=== PATIENT | male | born 1990 | race American Indian/Alaskan Native ===

== ENCOUNTER 2016-12-28 22:17 | Inpatient (IN) | payer OTHER ==
[2016-12-28 23:49] LABS: Anion Gap 30 mmol/L; Basophils % (Auto) 0.2 % (0.0-1.8); Blood Urea Nitrogen 17 mg/dL (9-20); Calcium 9.8 mg/dL (8.4-10.2); Carbon Dioxide 13 mmol/L (22-30); Chloride 92.6 mmol/L (98-107); Eosinophils % (Auto) 0.2 % (0.0-4.3); Hematocrit 47.8 % (35.5-45.6); Mean Corpuscular HGB Conc 33 % (32-34); Mean Corpuscular Hemoglobin 30 pg (28-32); Mean Corpuscular Volume 91 fl (84-94); Platelet Count 297 K/mm3 (140-440); Potassium 4.6 mmol/L (3.6-5.0); Red Blood Count 5.29 M/mm3 (3.65-5.03); Sodium 131 mmol/L (137-145)
[2016-12-28 23:55] LABS: Glucose 544 mg/dL (75-100)
[2016-12-29] MEDS ORDERED: D50W (25GM) IV PRN ×2 (02:33→04:07)
[2016-12-29] MEDS ORDERED: NACL 0.9% 1000 ML 1,000 ML IV ONE ×2 (02:33→02:34)
--- NOTE | 2016-12-29 02:43 | Emergency Department Report ---
- General Chief complaint: Hyperglycemia Stated complaint: POSS HIGH BS/SOB Time Seen by Provider: 12/29/16 02:33 Source: patient Mode of arrival: Ambulatory Limitations: No Limitations - History of Present Illness Initial comments: 26 year old male with a past medical history of [id number] diabetes presents to the hospital with hyperglycemia, fatigue, increased thirst, increased urination, shortness of breath. Patient states he has been compliant with his metformin 500 mg twice a day. He does not check his sugar at home at all. Patient has been a diabetic for 2 years as never established treatment with a primary care doctor and meds are refilled and adjusted through ER visits. Patient denies any pain or fever but has generalized weakness. - Related Data Allergies Allergy/AdvReac Type Severity Reaction Status Date / Time No Known Allergies Allergy Verified 12/29/16 02:36 ED Review of Systems ROS: Stated complaint: POSS HIGH BS/SOB Other details as noted in HPI Comment: All other systems reviewed and negative Other: Constitutional: No fevers chills Eyes: No eye pain visual changes ENT: No ear pain or throat pain Neck: Denies pain Respiratory: Denies cough wheezing Endocrine: As per HPI GI: Denies abdominal pain, nausea, vomiting, diarrhea : Denies dysuria Musculoskeletal: Denies back pain Skin: Denies rash, lesions, erythema Neurologic: Denies headache, numbness Psychiatric: Denies suicidal ideation, hallucinations ED Past Medical Hx - Past Medical History Hx Diabetes: Yes - Social History Smoking Status: Never Smoker Substance Use Type: None ED Physical Exam - General Limitations: No Limitations - Other Other exam information: General: No limitations, patient is alert in no acute distress Head exam: Atraumatic, normocephalic Eyes exam: Normal appearance, pupils equal reactive to light ENT:dry mucous membrane, normal oropharynx Neck exam: Normal inspection Respiratory exam: Clear to auscultation bilateral, no wheezes, rales, crackles Cardiovascular: Normal rate and rhythm, normal heart sounds Abdomen: Soft, nondistended, and nontender, with normal bowel sounds, no rebound, or guarding Extremity: Full range of motion normal inspection no deformity Back: Normal Inspection, full range of motion, no tenderness Neurologic: Alert, oriented x3, cranial nerves intact, no motor or sensory deficit Psychiatric: normal affect, normal mood Skin: Warm, dry, intact ED Course Vital Signs 12/28/16 22:54 Temperature 98.4 F Pulse Rate 77 Respiratory 18 Rate Blood Pressure 131/85 O2 Sat by Pulse 98 Oximetry - Reevaluation(s) Reevaluation #1: 12/29/16 02:46 Patient stable without distress. IV fluids, insulin bolus, insulin drip ordered 12/29/16 03:15 bolus held since glucose in 300's. Pt states he has been drinking lots of water. ED Medical Decision Making - Lab Data Result diagrams: 12/28/16 23:15 12/28/16 23:15 Lab Results 12/28/16 12/28/16 12/28/16 Range/Units 22:56 23:15 23:15 WBC 10.0 (4.5-11.0) K/mm3 RBC 5.29 H (3.65-5.03) M/mm3 Hgb 16.0 H (11.8-15.2) gm/dl Hct 47.8 H (35.5-45.6) % MCV 91 (84-94) fl MCH 30 (28-32) pg MCHC 33 (32-34) % RDW 13.0 L (13.2-15.2) % Plt Count 297 (140-440) K/mm3 Lymph % (Auto) 9.1 L (13.4-35.0) % [place] % (Auto) 6.9 (0.0-7.3) % Eos % (Auto) 0.2 (0.0-4.3) % Baso % (Auto) 0.2 (0.0-1.8) % Lymph # 0.9 L (1.2-5.4) K/mm3 [place] # 0.7 (0.0-0.8) K/mm3 Eos # 0.0 (0.0-0.4) K/mm3 Baso # 0.0 (0.0-0.1) K/mm3 Seg Neutrophils % 83.6 H (40.0-70.0) % Seg Neutrophils # 8.4 H (1.8-7.7) K/mm3 VBG pH (7.320-7.420) Sodium 131 L (137-145) mmol/L Potassium 4.6 (3.6-5.0) mmol/L Chloride 92.6 L (98-107) mmol/L Carbon Dioxide 13 L (22-30) mmol/L Anion Gap 30 mmol/L BUN 17 (9-20) mg/dL Creatinine 1.0 (0.8-1.5) mg/dL Estimated GFR > 60 ml/min BUN/Creatinine Ratio 17.00 % Glucose 544 H* (75-100) mg/dL POC Glucose > 500 H (70-105) Calcium 9.8 (8.4-10.2) mg/dL 12/28/16 Range/Units 23:15 WBC (4.5-11.0) K/mm3 RBC (3.65-5.03) M/mm3 Hgb (11.8-15.2) gm/dl Hct (35.5-45.6) % MCV (84-94) fl MCH (28-32) pg MCHC (32-34) % RDW (13.2-15.2) % Plt Count (140-440) K/mm3 Lymph % (Auto) (13.4-35.0) % [place] % (Auto) (0.0-7.3) % Eos % (Auto) (0.0-4.3) % Baso % (Auto) (0.0-1.8) % Lymph # (1.2-5.4) K/mm3 [place] # (0.0-0.8) K/mm3 Eos # (0.0-0.4) K/mm3 Baso # (0.0-0.1) K/mm3 Seg Neutrophils % (40.0-70.0) % Seg Neutrophils # (1.8-7.7) K/mm3 VBG pH 7.217 L (7.320-7.420) Sodium (137-145) mmol/L Potassium (3.6-5.0) mmol/L Chloride (98-107) mmol/L Carbon Dioxide (22-30) mmol/L Anion Gap mmol/L BUN (9-20) mg/dL Creatinine (0.8-1.5) mg/dL Estimated GFR ml/min BUN/Creatinine Ratio % Glucose (75-100) mg/dL POC Glucose (70-105) Calcium (8.4-10.2) mg/dL UA 80 ketones - Medical Decision Making Labs consistent with DKA. Patient has been compliant with his metformin and will likely need insulin or additional meds for blood glucose control. ICU admission for insulin drip therapy is required at this time - Differential Diagnosis hyperglycemia, DKA Critical Care Time: No Critical care attestation.: If time is entered above; I have spent that time in minutes in the direct care of this critically ill patient, excluding procedure time. ED Disposition Clinical Impression: Diabetic ketoacidosis Disposition: OP ADMIT IP TO THIS HOSP Is pt being admited?: Yes Does the pt Need Aspirin: Yes Condition: Stable Time of Disposition: 02:47 (Dr. Merchant/[facility])
[2016-12-29 02:55] LABS: Bilirubin,Urine NEG (Negative); Blood,Urine NEG (Negative); Ketones,Urine 80 mg/dL (Negative); Leukocyte Esterase,Urine NEG (Negative); Mucus,Urine FEW /HPF; Nitrite,Urine NEG (Negative); Protein,Urine <15 mg/dL mg/dL (Negative); Urobilinogen,Urine < 2.0 mg/dL (<2.0); WBC,Urine < 1.0 /HPF (0.0-6.0)
[2016-12-29] MEDS: NovoLIN R 100 UNITS in NACL 0.9% 99 ML IV SCH ×2 (03:00→16:41)
[2016-12-29] MEDS ORDERED: ZOFRAN IV PRN (04:05)
[2016-12-29] MEDS ORDERED: REGLAN IV PRN (04:05)
[2016-12-29] MEDS ORDERED: MILK OF MAGNESIA PO PRN (04:05)
[2016-12-29] MEDS ORDERED: TYLENOL PO PRN (04:05)
[2016-12-29] MEDS ORDERED: DULCOLAX PR PRN (04:05)
--- NOTE | 2016-12-29 04:09 | History and Physical Report ---
History of Present Illness Date of examination: 12/29/16 History of present illness: 26-year-old man with a history of diabetes comes emergency room because he felt that his sugar was elevated. He has been experiencing frequent urination and thirst and generalized weakness. Does not check his sugar at home Patient denies chest pain, palpitation, shortness of breath, cough, abdominal pain, hematochezia, dysuria, frequency, focal weakness, dysarthria, fever chills , hot or cold intolerance, easy bruisability, or rash or bleeding from mucosal membrane, rhinorrhea, epistaxis, earache, tinnitus, blurry vision, eye discharge , anxiety, depression. Other review of systems negative PAST SURGICAL HISTORY: None SOCIAL HISTORY: Denies alcohol, tobacco, drugs FAMILY HISTORY: Diabetes Medications and Allergies Allergies Allergy/AdvReac Type Severity Reaction Status Date / Time No Known Allergies Allergy Verified 12/29/16 02:36 Home Medications Medication Instructions Recorded Confirmed Last Taken Type metFORMIN [Glucophage] 500 mg PO BID 12/29/16 12/29/16 12/28/16 History Active Meds: Active Medications Dextrose (D50w (25gm)) 0 ml IV PRN PRN PRN Reason: Hypoglycemia Insulin Human Regular 100 (units/ Sodium Chloride) 100 mls @ 1 mls/hr IV TITR MARIZOL; 1 UNITS/HR PRN Reason: Protocol Last Admin: 12/29/16 03:00 Dose: 7 units/hr, 7 mls/hr Exam - Physical Exam Narrative exam: Gen. appearance: Patient lying in bed, no apparent distress HEENT: Normocephalic, atraumatic, pupils equally round and reactive to light, extraocular movement intact, and no sclericterus,. No JVD or thyromegaly or nodule,neck supple, no carotid bruit ,mucous membranes moist, no exudate or erythema Heart: S1, S2, regular rate and rhythm Lungs: Clear to auscultation bilaterally, breathing comfortable Abdomen: Positive bowel sounds, nontender, nondistended, no organomegaly Extremity: No edema, cyanosis, clubbing Skin: No rash, nodules, warm, dry Neuro: Oriented 3, cranial nerves II-12 intact, speech is fluent, motor and sensory intact - Constitutional Vitals: Temp Pulse Resp BP Pulse Ox 98.4 F 77 18 131/85 98 12/28/16 22:54 12/28/16 22:54 12/28/16 22:54 12/28/16 22:54 12/28/16 22:54 Results - Labs CBC & Chem 7: 12/30/16 04:34 12/30/16 04:34 Labs: Abnormal lab results 12/28/16 12/28/16 12/28/16 Range/Units 22:56 23:15 23:15 RBC 5.29 H (3.65-5.03) M/mm3 Hgb 16.0 H (11.8-15.2) gm/dl Hct 47.8 H (35.5-45.6) % RDW 13.0 L (13.2-15.2) % Lymph % (Auto) 9.1 L (13.4-35.0) % Lymph # 0.9 L (1.2-5.4) K/mm3 Seg Neutrophils % 83.6 H (40.0-70.0) % Seg Neutrophils # 8.4 H (1.8-7.7) K/mm3 VBG pH (7.320-7.420) Sodium 131 L (137-145) mmol/L Chloride 92.6 L (98-107) mmol/L Carbon Dioxide 13 L (22-30) mmol/L Glucose 544 H* (75-100) mg/dL POC Glucose > 500 H (70-105) 12/28/16 12/29/16 12/29/16 Range/Units 23:15 02:58 04:00 RBC (3.65-5.03) M/mm3 Hgb (11.8-15.2) gm/dl Hct (35.5-45.6) % RDW (13.2-15.2) % Lymph % (Auto) (13.4-35.0) % Lymph # (1.2-5.4) K/mm3 Seg Neutrophils % (40.0-70.0) % Seg Neutrophils # (1.8-7.7) K/mm3 VBG pH 7.217 L (7.320-7.420) Sodium (137-145) mmol/L Chloride (98-107) mmol/L Carbon Dioxide (22-30) mmol/L Glucose (75-100) mg/dL POC Glucose 394 H 393 H (70-105) Assessment and Plan DKA Pseudohyponatremia Metabolic acidosis Dehydration Admits medicine Start IV fluids, insulin drip Monitor serial chemistry, fingersticks Check hemoglobin A1c, consult critical care Start DVT prophylaxis
[2016-12-29] MEDS ORDERED: NACL 0.9% 1000 ML 1,000 ML IV SCH (05:00)
[2016-12-29] MEDS ORDERED: NACL 0.9% 1000 ML 1,000 ML ONE (05:13)
[2016-12-29 05:21] LABS: Magnesium 2.3 mg/dL (1.7-2.3); Phosphorous 4.3 mg/dL (2.5-4.5)
[2016-12-29 05:33] LABS: Blood Urea Nitrogen 19 mg/dL (9-20); Chloride 101.1 mmol/L (98-107); Glucose 447 mg/dL (75-100); Potassium 4.7 mmol/L (3.6-5.0); Sodium 135 mmol/L (137-145)
[2016-12-29 05:35] LABS: Anion Gap 31 mmol/L
[2016-12-29 05:36] LABS: Carbon Dioxide 8 mmol/L (22-30)
[2016-12-29 07:21] LABS: Anion Gap 28 mmol/L; BUN/Creatinine Ratio 21.25; Blood Urea Nitrogen 17 mg/dL (9-20); Calcium 9.4 mg/dL (8.4-10.2); Carbon Dioxide 10 mmol/L (22-30); Chloride 108.2 mmol/L (98-107); Glucose 301 mg/dL (75-100); Potassium 4.2 mmol/L (3.6-5.0); Sodium 142 mmol/L (137-145)
[2016-12-29] MEDS: D5/0.45NS 1,000 ML IV SCH ×3 (07:36→21:00)
--- NOTE | 2016-12-29 08:02 | Progress Note ---
Assessment and Plan Assessment and plan: --Diabetic ketoacidosis Secondary to noncompliance, continue insulin drip per protocol Rigorous IV hydration, closely monitor electrolytes, follow a gap,Sips of water as tolerated May start long-acting insulin and ADA diet once anion gap closes and sugars are reasonable control Hemoglobin A1c 11.2 ,Diabetic education, nutrition consult --Pseudohyponatremia Secondary to severe hyperglycemia ,Resolved closely monitor electrolytes --Medical non-complaints; counseling done patient strongly advised to adhere Treatment and diet plan Also encouraged to follow primary care physician for close monitoring of blood sugars Diabetic education, nutrition consult Possible home health nurse and discharge for disease monitoring --DVT prophylaxis with Lovenox --Obesity; counseling done patient advised dietary modification and exercise as tolerated and weight reduction When medically stable, patient verbalized understanding Closely monitor the patient adjust the management as needed Medical records reviewed plan of care discussed with the patient as well as his nurse Critical care time 32 minutes, The high probability of a clinically significant, sudden or life threatening deterioration of the [endocrine, electrolyte] system(s) required my full and direct attention, intervention and personal management. The aggregate critical care time was [32] minutes. This time is in addition to time spent performing reported procedures but includes the following: [x] Data Review and interpretation [x] Patient assessment and monitoring of vital signs [x] Documentation [x] Medication orders and management in ICU History Interval history: Patient seen and evaluated in ICU this morning medical records reviewed Patient was admitted with diabetic ketoacidosis on insulin drip Patient feels slightly better no new complaints No new events reported by the nursing staff Alert awake oriented 3 not in acute distress Hospitalist Physical - Constitutional Vitals: Temp Pulse Resp BP Pulse Ox 98.5 F 78 18 131/78 100 12/29/16 06:00 12/29/16 05:00 12/29/16 05:00 12/29/16 05:00 12/29/16 05:00 General appearance: Present: no acute distress, well-nourished, obese - EENT Eyes: Present: PERRL, EOM intact - Neck Neck: Present: supple, normal ROM - Respiratory Respiratory effort: normal Respiratory: negative: rales, rhonchi, wheezing - Cardiovascular Rhythm: regular Heart Sounds: Present: S1 & S2 - Extremities Extremities: no ischemia, pulses intact, pulses symmetrical Peripheral Pulses: within normal limits - Abdominal General gastrointestinal: soft, non-tender, non-distended, normal bowel sounds - Integumentary Integumentary: Present: clear, warm - Psychiatric Psychiatric: appropriate mood/affect, cooperative - Neurologic Neurologic: CNII-XII intact, moves all extremities Results - Labs CBC & Chem 7: 12/28/16 23:15 12/29/16 12:33 Labs: Laboratory Last Values WBC 10.0 K/mm3 (4.5-11.0) 12/28/16 23:15 RBC 5.29 M/mm3 (3.65-5.03) H 12/28/16 23:15 Hgb 16.0 gm/dl (11.8-15.2) H 12/28/16 23:15 Hct 47.8 % (35.5-45.6) H 12/28/16 23:15 MCV 91 fl (84-94) 12/28/16 23:15 MCH 30 pg (28-32) 12/28/16 23:15 MCHC 33 % (32-34) 12/28/16 23:15 RDW 13.0 % (13.2-15.2) L 12/28/16 23:15 Plt Count 297 K/mm3 (140-440) 12/28/16 23:15 Lymph % (Auto) 9.1 % (13.4-35.0) L 12/28/16 23:15 [place] % (Auto) 6.9 % (0.0-7.3) 12/28/16 23:15 Eos % (Auto) 0.2 % (0.0-4.3) 12/28/16 23:15 Baso % (Auto) 0.2 % (0.0-1.8) 12/28/16 23:15 Lymph # 0.9 K/mm3 (1.2-5.4) L 12/28/16 23:15 [place] # 0.7 K/mm3 (0.0-0.8) 12/28/16 23:15 Eos # 0.0 K/mm3 (0.0-0.4) 12/28/16 23:15 Baso # 0.0 K/mm3 (0.0-0.1) 12/28/16 23:15 Seg Neutrophils % 83.6 % (40.0-70.0) H 12/28/16 23:15 Seg Neutrophils # 8.4 K/mm3 (1.8-7.7) H 12/28/16 23:15 VBG pH 7.217 (7.320-7.420) L 12/28/16 23:15 Sodium 142 mmol/L (137-145) D 12/29/16 06:50 Potassium 4.7 mmol/L (3.6-5.0) 12/29/16 04:22 Chloride 101.1 mmol/L (98-107) 12/29/16 04:22 Carbon Dioxide 10 mmol/L (22-30) L 12/29/16 06:50 Anion Gap 31 mmol/L 12/29/16 04:22 BUN 17 mg/dL (9-20) 12/29/16 06:50 Creatinine 0.8 mg/dL (0.8-1.5) 12/29/16 06:50 Estimated GFR > 60 ml/min 12/29/16 06:50 BUN/Creatinine Ratio 21.25 % 12/29/16 06:50 Glucose 301 mg/dL (75-100) H 12/29/16 06:50 POC Glucose 291 (70-105) H 12/29/16 06:07 Hemoglobin A1c 11.3 % (4-6) H 12/29/16 04:22 Calcium 9.4 mg/dL (8.4-10.2) 12/29/16 06:50 Phosphorus 4.30 mg/dL (2.5-4.5) 12/29/16 04:22 Magnesium 2.30 mg/dL (1.7-2.3) 12/29/16 04:22 Urine Color Straw (Yellow) 12/28/16 Unknown Urine Turbidity Clear (Clear) 12/28/16 Unknown Urine pH 5.0 (5.0-7.0) 12/28/16 Unknown Ur Specific [place] 1.021 (1.003-1.030) 12/28/16 Unknown Urine Protein <15 mg/dl mg/dL (Negative) 12/28/16 Unknown Urine Glucose (UA) >=500 mg/dL (Negative) 12/28/16 Unknown Urine Ketones 80 mg/dL (Negative) 12/28/16 Unknown Urine Blood Neg (Negative) 12/28/16 Unknown Urine Nitrite Neg (Negative) 12/28/16 Unknown Urine Bilirubin Neg (Negative) 12/28/16 Unknown Urine Urobilinogen < 2.0 mg/dL (<2.0) 12/28/16 Unknown Ur Leukocyte Esterase Neg (Negative) 12/28/16 Unknown Urine WBC (Auto) < 1.0 /HPF (0.0-6.0) 12/28/16 Unknown Urine RBC (Auto) 1.0 /HPF (0.0-6.0) 12/28/16 Unknown U Epithel Cells (Auto) < 1.0 /HPF (0-13.0) 12/28/16 Unknown Urine Mucus Few /HPF 12/28/16 Unknown
[2016-12-29 09:59] LABS: Anion Gap 24 mmol/L; Blood Urea Nitrogen 16 mg/dL (9-20); Calcium 9.3 mg/dL (8.4-10.2); Carbon Dioxide 13 mmol/L (22-30); Chloride 109.3 mmol/L (98-107); Glucose 251 mg/dL (75-100); Potassium 4.3 mmol/L (3.6-5.0); Sodium 142 mmol/L (137-145)
[2016-12-29] MEDS ORDERED: LOVENOX SUB-Q SCH (10:00)
--- NOTE | 2016-12-29 11:25 | Consultation ---
History of Present Illness Consult date: 12/29/16 Reason for consult: other (DKA) History of present illness: Called to evaluate case of a 26-year-old male, with prior history of diabetes mellitus and immediate daily ICU with DKA. The patient reports long-standing history of diabetes currently treated with metformin. Previously on insulin but this was reportedly stopped 2 years ago. He presented with the finances, for thirsty and following on recheck with elevation of his blood sugar. Follow with severe acidosis of the ER and DKA protocol was initiated. He denies recent history of infection, influenza-like illness, urinary tract discomfort GI problems. He denies nausea, vomiting. No fever or chills reported by patient. No cough or active expectoration. Currently at the ICU on DKA protocol, blood sugar improving, last AG 20 Past History Past Medical History: diabetes Past Surgical History: No surgical history Social history: no significant social history Medications and Allergies Allergies Allergy/AdvReac Type Severity Reaction Status Date / Time No Known Allergies Allergy Verified 12/29/16 02:36 Home Medications Medication Instructions Recorded Confirmed Last Taken Type metFORMIN [Glucophage] 500 mg PO BID 12/29/16 12/29/16 12/28/16 History Active Meds: Active Medications Acetaminophen (Tylenol) 650 mg PO Q4H PRN PRN Reason: Pain MILD(1-3)/Fever >100.5/TORO Bisacodyl (Dulcolax) 10 mg CA QDAY PRN PRN Reason: Constipation unrelieved by MOM Dextrose (D50w (25gm)) 0 ml IV ONCE PRN PRN Reason: Hypoglycemia Enoxaparin Sodium (Lovenox) 40 mg SUB-Q QDAY@1000 MARIZOL Insulin Human Regular 100 (units/ Sodium Chloride) 100 mls @ 1 mls/hr IV TITR MARIZOL; 1 UNITS/HR PRN Reason: Protocol Last Titration: 12/29/16 10:13 Dose: 10 units/hr, 10 mls/hr Dextrose/Sodium Chloride (D5/0.45ns) 1,000 mls @ 150 mls/hr IV DIRECT MARIZOL Last Admin: 12/29/16 07:36 Dose: 150 mls/hr Sodium Chloride (Nacl 0.9% 1000 Ml) 1,000 mls @ 150 mls/hr IV DIRECT MARIZOL Last Infusion: 12/29/16 07:38 Dose: 0 mls/hr Magnesium Hydroxide (Milk Of Magnesia) 30 ml PO Q4H PRN PRN Reason: Constipation Metoclopramide HCl (Reglan) 10 mg IV Q6H PRN PRN Reason: Nausea And Vomiting Ondansetron HCl (Zofran) 4 mg IV Q8H PRN PRN Reason: N/V unrelieved by Reglan Review of Systems Constitutional: weight gain, fatigue, no fever, no chills, no sweats, no night sweats, no anorexia, no weakness, no lethargy Cardiovascular: no chest pain, no orthopnea, no palpitations, no edema, no syncope Respiratory: no cough, no cough with sputum, no excessive sputum, no hemoptysis , no shortness of breath, no dyspnea on exertion Gastrointestinal: no abdominal pain, no nausea, no vomiting, no diarrhea Genitourinary Male: no dysuria, no hematuria Integumentary: no rash, no pruritis, no redness, no sores, no wounds Neurological: weakness, no convulsions Psychiatric: no anxiety Endocrine: excessive thirst, polyuria, nocturia, high blood sugars, fatigue Hematologic/Lymphatic: no easy bruising, no easy bleeding, no lymphadenopathy, no lymphedema Allergic/Immunologic: no urticaria, no allergic rhinitis, no wheezing Physical Examination Vital signs: Vital Signs Temp Pulse Resp BP Pulse Ox 98.4 F 77 18 131/85 98 12/28/16 22:54 12/28/16 22:54 12/28/16 22:54 12/28/16 22:54 12/28/16 22:54 General appearance: no acute distress, alert, other (obese) Eyes: non-icteric ENT: oropharynx dry Neck: supple, no lymphadenopathy, no JVD Effort: normal Ascultation: Bilateral: clear Cardiovascular: regular rate and rhythm Gastrointestinal: normoactive bowel sounds, non-distended Integumentary: normal Extremities: no cyanosis normal mental status, non-focal exam mood appropriate, affect normal Results - Laboratory Findings CBC and BMP: 12/28/16 23:15 12/29/16 09:22 Abnormal lab findings: Abnormal Labs 12/29/16 12/29/16 12/29/16 04:22 04:22 05:07 Sodium 135 L Chloride Carbon Dioxide 8 L* Glucose 447 H POC Glucose 312 H Hemoglobin A1c 11.3 H 12/29/16 12/29/16 12/29/16 06:07 06:50 09:22 Sodium Chloride 109.3 H Carbon Dioxide 10 L 13 L Glucose 301 H 251 H POC Glucose 291 H Hemoglobin A1c - Diagnostic Findings Chest x-ray: report reviewed Assessment and Plan DKA Metabolic acidosis Obesity DM. Thus far been treated with metformin. This reassessment as to best approach for outpatient management Recommendations Continue IV fluids and Monitor sliding scale glucose and continue insulin per protocol Encourage by mouth free water and will initiate oral feedings when appropriate DVT prophylaxis Monitor for fever Critical care time was 31 minutes of [id number] evaluation and coordination of care
[2016-12-29] MEDS: LOVENOX SUB-Q SCH (11:33)
[2016-12-29 13:06] LABS: Anion Gap 24 mmol/L; BUN/Creatinine Ratio 16.66; Blood Urea Nitrogen 15 mg/dL (9-20); Calcium 8.8 mg/dL (8.4-10.2); Carbon Dioxide 13 mmol/L (22-30); Chloride 109.1 mmol/L (98-107); Glucose 201 mg/dL (75-100); Sodium 142 mmol/L (137-145)
--- NOTE | 2016-12-29 13:55 | Admit Criteria Form ---
Admission Criteria Documentation: DIABETES Clinical Indications for Admission to Inpatient Care (Place 'X' for any and all applicable criteria): Admission is indicated by presence of ALL (if I & II) or ANY ONE (if III or IV) of the following (1)(2)(3)(4): [X]I. Diabetes is uncontrolled as indicated by ANY ONE of the following: [X]a) Diabetic ketoacidosis as indicated by ALL of the following (8): [X]i) Hyperglycemia (eg, plasma glucose greater than 200 mg/ dL (11.1 mmol/L)) [X]ii) Acidosis (eg, arterial pH less than 7.30, serum bicarbonate level less than 15 mEq/L (mmol/L)) [ ]iii) Moderate ketonuria or ketonemia [ ]b) Hyperglycemic hyperosmolar state as indicated by ALL of the following(9)(10): [ ]i) Neurologic dysfunction (eg, stupor, coma, hemiparesis , seizure)(13) [ ]ii) Plasma glucose greater than 600 mg/dL (33.3 mmol/L) [ ]iii) Serum osmolality greater than 320 mOsm/kg (mmol/kg) [ ]c) Severe signs or symptoms secondary to hyperglycemia indicated by ANY ONE of the following: [ ]i) Altered mental status(10) [ ]ii) Significant hypovolemia or dehydration [ ]iii) Intractable nausea or vomiting [ ]iv) Unexplained fever or severe infection [ ]v) Severe electrolyte abnormality (eg, hypokalemia, hyperkalemia, hypernatremia) [ ]II. Management at other levels of care (Also use Diabetes: Observation Care as appropriate) is not feasible because of ANY ONE of the following: [ ]a) Condition was not adequately corrected with treatment at other levels of care. [ ]b) Treatment at other levels of care is not appropriate because of condition severity (eg, hyperosmolar coma). [ ]III. Contraindications and/or Inappropriate clinical situations for Observational Care in patients with Diabetes, when ANY ONE of the following is required: [ ]a) Patient require specific diagnostic workup or therapeutic intervention 22 [ ]b) Patient with abnormal vital signs or altered mental status 23 [ ]IV. General contraindications and/or Inappropriate clinical situations for Observational Care in patients with Diabetes, when ANY ONE of the following is required: [ ]a) Prediction of prolongation of LOS based on ANY ONE of the following may be considered as a contraindication for observational care 2, 3, 4, 5, 6, 7, 8, 9, 10, 11 [ ]i) Age > 65 yrs. [ ]ii) Patient arriving by ambulance [ ]iii) Patient with high acuity [ ]iv) Patient requiring vital sign monitoring [ ]v) Patient on IV medication [ ]b) Systolic blood pressures 180mmHg 3,12 [ ]c) Patient with altered mental status including delirium and other alteration of consciousness, (3) [ ]d) Patient whose discharge disposition will be to a nursing home home or rehabilitation home should not be managed in Emergency Department Observation Unit. CMS rule requires 3 days hospital stay before such placement.3,13 [ ]e) Patient with failure to thrive due to broad array of etiologies 3,16,17 [ ]f) Inability to ambulate 3,14 Extended stay beyond goal length of stay may be needed for(3)(20): [ ]a) Treatment of precipitating causes [ ]b) Development of hypoglycemia [ ]c) Complications of treatment [ ]d) Complications of decompensated diabetes (eg, acute gastric dilatation, persistent metabolic or neurologic derangement) [ ]e) Active Comorbidities [ ]f) Older patients( 65 years or older) The original [employer] content created by [employer] has been revised. The portions of the content which have been revised are identified through the use of italic text or in bold,and [facility] has neither reviewed nor approved the modified material. All other unmodified content is copyright [employer] [facility]. Please see references footnoted in the original [employer] [facility] edition 2016 Admission Criteria Met: Yes
[2016-12-29 21:04] LABS: Anion Gap 18 mmol/L; Blood Urea Nitrogen 12 mg/dL (9-20); Calcium 8.2 mg/dL (8.4-10.2); Carbon Dioxide 16 mmol/L (22-30); Chloride 107.5 mmol/L (98-107); Glucose 258 mg/dL (75-100); Potassium 3.1 mmol/L (3.6-5.0); Sodium 138 mmol/L (137-145)
[2016-12-30] MEDS ORDERED: K-DUR PO ONE (00:01)
[2016-12-30] MEDS: NovoLIN R 100 UNITS in NACL 0.9% 99 ML IV SCH (01:06)
[2016-12-30] MEDS: D5/0.45NS 1,000 ML IV SCH (05:08)
[2016-12-30 05:10] LABS: Basophils % (Auto) 0.4 % (0.0-1.8); Eosinophils % (Auto) 1.7 % (0.0-4.3); Hematocrit 39.5 % (35.5-45.6); Hemoglobin 13.4 gm/dl (11.8-15.2); Mean Corpuscular HGB Conc 34 % (32-34); Mean Corpuscular Hemoglobin 30 pg (28-32); Mean Corpuscular Volume 89 fl (84-94); Platelet Count 212 K/mm3 (140-440); Red Blood Count 4.44 M/mm3 (3.65-5.03); Red Cell Distribution Width 13.2 % (13.2-15.2); White Blood Count 6.4 K/mm3 (4.5-11.0)
[2016-12-30 05:21] LABS: Magnesium 1.7 mg/dL (1.7-2.3); Phosphorous 3.7 mg/dL (2.5-4.5)
[2016-12-30 05:26] LABS: Anion Gap 20 mmol/L; Blood Urea Nitrogen 11 mg/dL (9-20); Calcium 8.3 mg/dL (8.4-10.2); Carbon Dioxide 17 mmol/L (22-30); Chloride 104.9 mmol/L (98-107); Glucose 244 mg/dL (75-100); Sodium 138 mmol/L (137-145)
--- NOTE | 2016-12-30 07:06 | Progress Note ---
Assessment and Plan Assessment and plan: --Diabetic ketoacidosis Discontinue insulin drip, start long-acting insulin 7030 Change IV fluids to normal saline, ADA diet Accu-Cheks every before meals and at bedtime, sliding scale coverage moderate dose Diabetic education and nutrition consult, hemoglobin A1c 11.2 --Pseudohyponatremia Secondary to severe hyperglycemia ,Resolved --Medical non-compliance; counseling done patient strongly advised to adhere Treatment and diet plan Also encouraged to follow primary care physician for close monitoring of blood sugars Diabetic education, nutrition consult Possible home health nurse and discharge for disease monitoring --Obesity; counseling done patient advised dietary modification and exercise as tolerated and weight reduction When medically stable, patient verbalized understanding --DVT prophylaxis with Lovenox Monitor blood sugars for 1-2 hours and patient can be transferred out of ICU to medical floor Possible discharge in 1-2 days if stable Plan of care discussed with the patient and answered all his questions Critical care time 31 minutes, The high probability of a clinically significant, sudden or life threatening deterioration of the [endocrine, electrolyte] system(s) required my full and direct attention, intervention and personal management. The aggregate critical care time was [31] minutes. This time is in addition to time spent performing reported procedures but includes the following: [x] Data Review and interpretation [x] Patient assessment and monitoring of vital signs [x] Documentation [x] Medication orders and management in ICU History Interval history: Patient seen and evaluated in ICU this morning medical records reviewed Blood sugars are reasonable levels, anion gap closed patient feels better no new complaints Hospitalist Physical - Constitutional Vitals: Temp Pulse Resp BP Pulse Ox 98.6 F 68 17 120/72 97 12/30/16 04:32 12/30/16 05:00 12/30/16 05:00 12/30/16 05:00 12/30/16 05:00 General appearance: Present: no acute distress, well-nourished, obese - EENT Eyes: Present: PERRL, EOM intact - Neck Neck: Present: supple, normal ROM - Respiratory Respiratory effort: normal Respiratory: negative: rales, rhonchi, wheezing - Cardiovascular Rhythm: regular Heart Sounds: Present: S1 & S2 - Extremities Extremities: no ischemia, pulses intact, pulses symmetrical - Abdominal General gastrointestinal: soft, non-tender, non-distended, normal bowel sounds - Integumentary Integumentary: Present: clear, warm - Psychiatric Psychiatric: appropriate mood/affect, cooperative - Neurologic Neurologic: CNII-XII intact, moves all extremities Results - Labs CBC & Chem 7: 12/30/16 04:34 12/30/16 04:34 Labs: Laboratory Last Values WBC 6.4 K/mm3 (4.5-11.0) 12/30/16 04:34 RBC 4.44 M/mm3 (3.65-5.03) 12/30/16 04:34 Hgb 13.4 gm/dl (11.8-15.2) 12/30/16 04:34 Hct 39.5 % (35.5-45.6) D 12/30/16 04:34 MCV 89 fl (84-94) 12/30/16 04:34 MCH 30 pg (28-32) 12/30/16 04:34 MCHC 34 % (32-34) 12/30/16 04:34 RDW 13.2 % (13.2-15.2) 12/30/16 04:34 Plt Count 212 K/mm3 (140-440) 12/30/16 04:34 Lymph % (Auto) 26.2 % (13.4-35.0) 12/30/16 04:34 Giles % (Auto) 8.7 % (0.0-7.3) H 12/30/16 04:34 Eos % (Auto) 1.7 % (0.0-4.3) 12/30/16 04:34 Baso % (Auto) 0.4 % (0.0-1.8) 12/30/16 04:34 Lymph # 1.7 K/mm3 (1.2-5.4) 12/30/16 04:34 Giles # 0.6 K/mm3 (0.0-0.8) 12/30/16 04:34 Eos # 0.1 K/mm3 (0.0-0.4) 12/30/16 04:34 Baso # 0.0 K/mm3 (0.0-0.1) 12/30/16 04:34 Seg Neutrophils % 63.0 % (40.0-70.0) 12/30/16 04:34 Seg Neutrophils # 4.0 K/mm3 (1.8-7.7) 12/30/16 04:34 VBG pH 7.217 (7.320-7.420) L 12/28/16 23:15 Sodium 138 mmol/L (137-145) 12/30/16 04:34 Potassium 4.0 mmol/L (3.6-5.0) D 12/30/16 04:34 Chloride 104.9 mmol/L (98-107) 12/30/16 04:34 Carbon Dioxide 17 mmol/L (22-30) L 12/30/16 04:34 Anion Gap 20 mmol/L 12/30/16 04:34 BUN 11 mg/dL (9-20) 12/30/16 04:34 Creatinine 1.0 mg/dL (0.8-1.5) 12/30/16 04:34 Estimated GFR > 60 ml/min 12/30/16 04:34 BUN/Creatinine Ratio 11.00 % 12/30/16 04:34 Glucose 244 mg/dL (75-100) H 12/30/16 04:34 POC Glucose 236 (70-105) H 12/30/16 06:23 Hemoglobin A1c 11.3 % (4-6) H 12/29/16 04:22 Calcium 8.3 mg/dL (8.4-10.2) L 12/30/16 04:34 Phosphorus 3.70 mg/dL (2.5-4.5) 12/30/16 04:34 Magnesium 1.70 mg/dL (1.7-2.3) 12/30/16 04:34 Urine Color Straw (Yellow) 12/28/16 Unknown Urine Turbidity Clear (Clear) 12/28/16 Unknown Urine pH 5.0 (5.0-7.0) 12/28/16 Unknown Ur Specific Kevin 1.021 (1.003-1.030) 12/28/16 Unknown Urine Protein <15 mg/dl mg/dL (Negative) 12/28/16 Unknown Urine Glucose (UA) >=500 mg/dL (Negative) 12/28/16 Unknown Urine Ketones 80 mg/dL (Negative) 12/28/16 Unknown Urine Blood Neg (Negative) 12/28/16 Unknown Urine Nitrite Neg (Negative) 12/28/16 Unknown Urine Bilirubin Neg (Negative) 12/28/16 Unknown Urine Urobilinogen < 2.0 mg/dL (<2.0) 12/28/16 Unknown Ur Leukocyte Esterase Neg (Negative) 12/28/16 Unknown Urine WBC (Auto) < 1.0 /HPF (0.0-6.0) 12/28/16 Unknown Urine RBC (Auto) 1.0 /HPF (0.0-6.0) 12/28/16 Unknown U Epithel Cells (Auto) < 1.0 /HPF (0-13.0) 12/28/16 Unknown Urine Mucus Few /HPF 12/28/16 Unknown
[2016-12-30] MEDS: NOVOLOG SUB-Q SCH ×4 (08:51→22:12)
[2016-12-30] MEDS: NACL 0.9% 1000 ML 1,000 ML IV SCH ×2 (10:59→22:13)
[2016-12-30] MEDS: LOVENOX SUB-Q SCH (10:59)
[2016-12-31 06:21] LABS: Anion Gap 17 mmol/L; BUN/Creatinine Ratio 6.66; Blood Urea Nitrogen 6 mg/dL (9-20); Carbon Dioxide 20 mmol/L (22-30); Chloride 106.6 mmol/L (98-107); Glucose 270 mg/dL (75-100); Potassium 3.8 mmol/L (3.6-5.0); Sodium 140 mmol/L (137-145)
[2016-12-31] MEDS: NACL 0.9% 1000 ML 1,000 ML IV SCH (07:09)
[2016-12-31] MEDS: NOVOLOG SUB-Q SCH (07:30)
--- NOTE | 2016-12-31 08:53 | Discharge Summary ---
Providers - Providers Date of Admission: 12/29/16 04:05 Date of discharge: 12/31/16 Attending physician: CAROLINE STANLEY Primary care physician: [employer] Hospitalization Condition: Stable Disposition: DC-01 TO HOME OR SELFCARE Core Measure Documentation - Palliative Care Palliative Care/ Comfort Measures: Not Applicable - Core Measures Any of the following diagnoses?: none Exam - Constitutional Vitals: Temp Pulse Resp BP Pulse Ox 98.8 F 73 16 119/66 99 12/30/16 23:40 12/30/16 23:40 12/30/16 23:40 12/30/16 23:40 12/30/16 23:40 Plan Activity: no restrictions Diet: diabetic Additional Instructions: [facility] 2-3 days Follow up with: PRIMARY CARE, [Primary Care Provider] - 3-5 Days Prescriptions: Insulin NPH/Regular [NovoLIN 70/30] 16 unit SUB-Q BIDDIAB 30 Days Insulin Regular, Human [HumuLIN R] 5 unit SQ ACHS 30 Days
[2016-12-31] MEDS: LOVENOX SUB-Q SCH (09:28)
[2016-12-31 09:35] VITALS: BP 105/54
[2016-12-31] MEDS ORDERED: MAG-OX PO SCH (10:00)
== END 2016-12-31 12:00 | disposition home or self-care (01) | DRG 638 ==
LOC: ED 22:17 → CC1 12-29 04:05 → 3A 12-30 12:49
PROVIDERS: ADMIT Internal Medicine; ATTEND Internal Medicine
DX: E13.10 Other specified diabetes mellitus with ketoacidosis without coma (principal); E87.1 Hypo-osmolality and hyponatremia; E13.65 Other specified diabetes mellitus with hyperglycemia; E86.0 Dehydration; E66.9 Obesity, unspecified; Z68.31 Body mass index [BMI] 31.0-31.9, adult; Z71.3 Dietary counseling and surveillance; Z71.89 Other specified counseling; Z91.14 Patient's other noncompliance with medication regimen; Z79.84 Long term (current) use of oral hypoglycemic drugs; Z83.3 Family history of diabetes mellitus
CPT/HCPCS: 36415; 80048; 81001; 82805; 82962; 83036; 83735; 84100; 85025; 96360; J1650; J1815; J7030